=== PATIENT | male | born 2000 | race Caucasian/White ===

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

== ENCOUNTER 2022-08-17 15:49 | Emergency (ER) | payer MEDICAID ==
[~2022-08-17] VITALS: Ht 170.2 cm; Wt 73.0 kg
[2022-08-17 16:30] VITALS: BP 136/82
== END 2022-08-17 21:25 | disposition home or self-care (01) ==
LOC: ER 16:09
DX: J06.9 Acute upper respiratory infection, unspecified (principal); M94.0 Chondrocostal junction syndrome [Tietze]; G89.29 Other chronic pain; R10.9 Unspecified abdominal pain; R00.0 Tachycardia, unspecified; J45.909 Unspecified asthma, uncomplicated; Z91.011 Allergy to milk products
CPT/HCPCS: 71045; 99283

== ENCOUNTER 2023-09-19 18:12 | Emergency (ER) | payer MEDICAID ==
[~2023-09-19] VITALS: Ht 175.3 cm; Wt 64.0 kg
[2023-09-19 18:21] VITALS: BP 132/85; PULSE 73; RESP 12; TEMP 98; O2SAT 99
[2023-09-19] MEDS ORDERED: IBUPROFEN 600MG TABLET PO ONE (19:45)
[2023-09-19] MEDS ORDERED: BACITRACIN ZINC OINT UDPKT TOP ONE (19:45)
[2023-09-19] MEDS ORDERED: TETANUS, DIPHTHERIA, PERTUSSIS VAC/PF 0.5ML (>10YR OLD) IM ONE (19:45)
[2023-09-19] MEDS ORDERED: IBUPROFEN 600MG TABLET PO NR (21:45)
[2023-09-19] MEDS ORDERED: BO1 TP (22:20)
== END 2023-09-19 23:19 | disposition home or self-care (01) ==
LOC: ER 18:12
DX: S61.230A Puncture wound without foreign body of right index finger without damage to nail, initial encounter (principal); J45.909 Unspecified asthma, uncomplicated; X58.XXXA Exposure to other specified factors, initial encounter; Y93.89 Activity, other specified; Y92.89 Other specified places as the place of occurrence of the external cause; Y99.8 Other external cause status
CPT/HCPCS: 90471; 90715; 99283